=== PATIENT | male | born 1985 | race American Indian/Alaskan Native ===

== ENCOUNTER 2017-06-26 12:36 | Emergency (ER) | payer SELFPAY ==
[2017-06-26 13:25] VITALS: BP 119/92
[2017-06-26 14:58] LABS: Basophils # (Auto) 0.1 K/mm3 (0.0-0.1); Basophils % (Auto) 0.6 % (0.0-1.8); Eosinophils % (Auto) 0.3 % (0.0-4.3); Hematocrit 42.2 % (35.5-45.6); Hemoglobin 14.6 gm/dl (11.8-15.2); Lymphocytes # (Auto) 0.9 K/mm3 (1.2-5.4); Lymphocytes % (Auto) 10.1 % (13.4-35.0); Mean Corpuscular HGB Conc 35 % (32-34); Mean Corpuscular Hemoglobin 32 pg (28-32); Mean Corpuscular Volume 92 fl (84-94); Monocytes # (Auto) 0.7 K/mm3 (0.0-0.8); Monocytes % (Auto) 8.4 % (0.0-7.3); Platelet Count 256 K/mm3 (140-440); Red Cell Distribution Width 12.3 % (13.2-15.2)
--- NOTE | 2017-06-26 14:58 | Emergency Department Report ---
Blank Doc - Documentation Documentation: Patient is a 32-year-old [place] male whose presenting with palpitations. Patient states he just left of the physical driving home he started feeling like his heart was racing and shortness of breath. She had to pull worker. Patient states it lasted approximately 1 hour. Patient states he feels somewhat better now. Patient will have blood work drawn be reassessed
[2017-06-26 15:13] LABS: BUN/Creatinine Ratio 11; Blood Urea Nitrogen 9 mg/dL (9-20); Calcium 9.1 mg/dL (8.4-10.2); Hemolysis Index 2
[2017-06-26] MEDS ORDERED: K-DUR PO ONE (15:52)
--- NOTE | 2017-06-26 16:10 | Emergency Department Report ---
ED Palpitations HPI - General Chief Complaint: Arrhythmia/Palpitations Stated Complaint: FEELS HEART RACING Time Seen by Provider: 06/26/17 14:45 Source: patient Mode of arrival: Ambulatory Limitations: No Limitations - History of Present Illness Initial Comments: This is a 32 y.o. male that presents with palpitations that started today. Patient was driving and felt heart racing face and pulled over to the side of the road. Currently not having palpitations. Reports heart felt like it was coming out of chest. He thought he was having a heart attach and called an ambulance. They brought him here. Admits to smoking occasional marijuana and drinking about 2 six packs of beer a week. Denies SOB, chest pain, fever, nausea , syncope, drinking energy drinks, or recreational drugs. MD Complaint: "heart racing" -: This morning Context: occured during rest Associated Symptoms: denies other symptoms - Related Data Allergies Allergy/AdvReac Type Severity Reaction Status Date / Time No Known Allergies Allergy Unverified 06/26/17 13:21 ED Review of Systems ROS: Stated complaint: FEELS HEART RACING Other details as noted in HPI Constitutional: denies: chills, fever Respiratory: denies: cough, shortness of breath, wheezing Cardiovascular: denies: chest pain, palpitations, dyspnea on exertion, orthopnea , syncope Gastrointestinal: denies: abdominal pain, nausea, diarrhea Genitourinary: denies: urgency, dysuria Neurological: denies: headache, weakness, paresthesias Psychiatric: denies: anxiety, depression ED Past Medical Hx - Past Medical History Previous Medical History?: No - Surgical History Past Surgical History?: No - Social History Smoking Status: Never Smoker Substance Use Type: Alcohol ED Physical Exam - General Limitations: No Limitations General appearance: alert, in no apparent distress - Respiratory Respiratory exam: Present: normal lung sounds bilaterally. Absent: respiratory distress, wheezes, rales, rhonchi, stridor - Cardiovascular Cardiovascular Exam: Present: regular rate, normal rhythm, irregular rhythm. Absent: systolic murmur, diastolic murmur, rubs, gallop - GI/Abdominal GI/Abdominal exam: Present: soft, normal bowel sounds. Absent: distended, tenderness, guarding, rebound, rigid - Neurological Exam Neurological exam: Present: alert, oriented X3, normal gait - Skin Skin exam: Present: warm, dry, intact, normal color. Absent: rash ED Course Vital Signs 06/26/17 13:21 Temperature 98.1 F Pulse Rate 75 Respiratory 20 Rate Blood Pressure 119/92 O2 Sat by Pulse 97 Oximetry ED Medical Decision Making - Lab Data Result diagrams: 06/26/17 14:49 06/26/17 14:49 - Medical Decision Making 32 y.o. male that presents with palpitations that started today while driving. Admits to occaional marijuana use and drinking 2 six pack beers a week. Patient examined by me and stable. No distress noted. EKG obtained and arrhythmia. CBC, BMP. Vitals stable. Normal assessment. Discharged home. F/U with PCP and Cardiology. No medication ordered. Critical care attestation.: If time is entered above; I have spent that time in minutes in the direct care of this critically ill patient, excluding procedure time. ED Disposition Clinical Impression: Heart palpitations Arrhythmia Qualifiers: Arrhythmia type: other cardiac arrhythmia Qualified Code(s): I49.8 - Other specified cardiac arrhythmias Disposition: TO HOME OR SELFCARE Is pt being admited?: No Does the pt Need Aspirin: No Condition: Stable Instructions: Palpitations (ED) Additional Instructions: Follow up with Primary Care Provider in 24-72 hours. Follow up with Cardiology as referred. Return to ER if symptoms return such as palpitations, SOB, chest pain, and N/V. Referrals: [facility] [Outside] - 3-5 Days [facility] [Outside] - 3-5 Days DAVID SOTO MD [Staff Physician] - 3-5 Days Forms: Work/School Release Form(ED) Time of Disposition: 16:40 Print Language: [id number]
== END 2017-06-26 16:46 | disposition home or self-care (01) ==
LOC: ED 12:36
DX: I49.8 Other specified cardiac arrhythmias (principal)
CPT/HCPCS: 36415; 80048; 85025; 99283